=== PATIENT | female | born 1965 | race Caucasian/White ===

== ENCOUNTER → 2017-04-13 | Outpatient (CLI) | payer OTHER ==
[~2017-04-13] MED LIST: 'PARAFON FORTE500 M1 PO; AUGMENTIN 875 M1 TAB PO; BACTRIM 400 MG-1 TAB PO; BENADRYL25 MG PO; BENTYL10 MG PO; CEFTIN500 MG PO; CIPRO500 MG PO; CLARITIN10 MG PO; CLEOCIN150 MG PO; FLAGYL 375375 MG PO; FLEXERIL10 MG PO; HYDROCODONE BIT1 T11 PO; MOTRIN800 MG PO; NAPROSYN500 MG PO; NORCO 325 MG-51 TAB PO; NORFLEX100 MG PO; PREDNICOT20 MG PO; PROTONIX40 MG PO; TYLENOL W/CODEI1 TA2 PO; VALIUM5 MG PO; VICODIN ES 7501 TAB PO; ZOFRAN ODT4 MG SL; Zofran4 MG PO
== END | disposition home or self-care (01) ==
LOC: RESCLI 03:10
DX: F41.0 Panic disorder [episodic paroxysmal anxiety] (principal); K04.7 Periapical abscess without sinus; F51.01 Primary insomnia; M79.671 Pain in right foot; J30.9 Allergic rhinitis, unspecified

== ENCOUNTER → 2017-04-16 | Outpatient (CLI) | payer OTHER ==
[2017-04-17 08:09] LABS: RHEUMATOID ARTHRITIS FACTOR <10.0 IU/mL (0.0-13.9)
== END | disposition home or self-care (01) ==
LOC: LAB 10:42
PROVIDERS: Hospitalist
DX: M79.671 Pain in right foot (principal)

== ENCOUNTER → 2017-07-26 | Outpatient (CLI) | payer OTHER | END | disposition home or self-care (01) | LOC: RESCLI 02:58 | DX: Z12.11 Encounter for screening for malignant neoplasm of colon (principal); M79.671 Pain in right foot; F41.0 Panic disorder [episodic paroxysmal anxiety]; F51.01 Primary insomnia; J30.2 Other seasonal allergic rhinitis; M25.511 Pain in right shoulder; G89.29 Other chronic pain; R07.9 Chest pain, unspecified; R00.0 Tachycardia, unspecified; F17.200 Nicotine dependence, unspecified, uncomplicated ==

== ENCOUNTER → 2017-11-10 | Outpatient (CLI) | payer OTHER | END | disposition home or self-care (01) | LOC: MRI 13:15 | DX: M50.821 Other cervical disc disorders at C4-C5 level (principal); M50.823 Other cervical disc disorders at C6-C7 level; M54.6 Pain in thoracic spine; M25.511 Pain in right shoulder ==

== ENCOUNTER 2018-03-17 10:30 | Emergency (ER) | payer OTHER ==
[~2018-03-17] VITALS: Ht 172.7 cm; Wt 80.7 kg
[~2018-03-17 10:30] MED LIST changes: -CLINDAMYCIN HC300 MG PO; -PERIDEX118 ML MM
[2018-03-17 10:31] VITALS: BP 105/80
[2018-03-17] MEDS ORDERED: PERIDEX118 ML MM (10:59)
[2018-03-17] MEDS ORDERED: CLINDAMYCIN HC300 MG PO (10:59)
== END 2018-03-17 11:04 | disposition home or self-care (01) ==
LOC: ED 10:30
DX: K08.89 Other specified disorders of teeth and supporting structures (principal); R68.84 Jaw pain; Z90.89 Acquired absence of other organs; Z88.0 Allergy status to penicillin; Z88.5 Allergy status to narcotic agent; Z88.1 Allergy status to other antibiotic agents

== ENCOUNTER → 2018-03-17 | Outpatient (CLI) | payer OTHER ==
[~2018-03-17] MED LIST changes: +CLINDAMYCIN HC300 MG PO; +PERIDEX118 ML MM
== END | disposition home or self-care (01) ==
LOC: MRI 09:17
DX: M54.6 Pain in thoracic spine (principal); R20.0 Anesthesia of skin

== ENCOUNTER 2018-05-28 14:56 | Emergency (ER) | payer OTHER ==
[~2018-05-28] VITALS: Ht 172.7 cm; Wt 81.6 kg
[2018-05-28 14:56] VITALS: BP 116/82
[~2018-05-28 14:56] MED LIST changes: +CLINDAMYCIN HC300 MG PO; +CYCLOBENZAPRINE5 M3 PO; +PERIDEX118 ML MM; +PREDNISONE10 MG PO
[2018-05-28] MEDS ORDERED: SEPTDS PO (15:11)
== END 2018-05-28 15:26 | disposition home or self-care (01) ==
LOC: ED 14:56
DX: H66.91 Otitis media, unspecified, right ear (principal); R68.84 Jaw pain; R09.81 Nasal congestion; Z88.0 Allergy status to penicillin; Z88.6 Allergy status to analgesic agent; Z88.1 Allergy status to other antibiotic agents

== ENCOUNTER 2018-06-04 12:00 | Emergency (ER) | payer OTHER ==
[~2018-06-04] VITALS: Ht 172.7 cm; Wt 83.5 kg
[~2018-06-04 12:00] MED LIST changes: +SEPTDS PO
[2018-06-04 12:01] VITALS: BP 151/90
[2018-06-04] MEDS ORDERED: Peridex 473 ML473 ML PO (12:15)
[2018-06-04] MEDS ORDERED: CLINDAMYCIN150 MG PO (12:15)
[2018-06-04] MEDS ORDERED: ZOFRAN4 MG PO (12:15)
== END 2018-06-04 14:29 | disposition home or self-care (01) ==
LOC: ED 12:00
DX: K02.9 Dental caries, unspecified (principal); R03.0 Elevated blood-pressure reading, without diagnosis of hypertension; H92.01 Otalgia, right ear; F17.200 Nicotine dependence, unspecified, uncomplicated; Z88.0 Allergy status to penicillin; Z88.5 Allergy status to narcotic agent; Z88.1 Allergy status to other antibiotic agents; Z98.890 Other specified postprocedural states

== ENCOUNTER 2018-07-07 17:26 | Emergency (ER) | payer OTHER ==
[~2018-07-07] VITALS: Ht 172.7 cm; Wt 90.7 kg
[~2018-07-07 17:26] MED LIST changes: +CLINDAMYCIN150 MG PO; +Peridex 473 ML473 ML PO; +ZOFRAN4 MG PO
[2018-07-07 18:15] LABS: BASO % 0.2 % (0.0-1.0); EOS # 0.1 10*3/uL (0.0-0.4); EOS % 0.5 % (1.0-4.0); HEMATOCRIT 42.2 % (37.0-47.0); LYMPH # 3.6 10*3/uL (1.3-4.4); LYMPH % 21.9 % (27.0-41.0); MEAN CELL VOLUME 91.5 fl (81.0-99.0); MEAN CORPUSCULAR HGB 30.4 pg (27.0-31.0); MEAN CORPUSCULAR HGB CONC 33.2 g/dl (33.0-37.0); MEAN PLATELET VOLUME 9.7 fl (9.6-12.3); MONO % 6.1 % (3.0-9.0); NEUT # 11.6 10*3/uL (2.3-7.9); PLATELET COUNT AUTOMATED 319 10*3/uL (130-400); RED BLOOD COUNT 4.61 10*6/uL (4.10-5.10); RED CELL DISTRI WIDTH 13.2 % (0-14.5); WHITE BLOOD COUNT 16.4 10*3/uL (4.8-10.8)
[2018-07-07 18:16] LABS: BILIRUBIN NEGATIVE (NEGATIVE); BLOOD 3+ (NEGATIVE); CLARITY CLOUDY (CLEAR); COLOR YELLOW (YELLOW); GLUCOSE NEGATIVE (NEGATIVE); KETONE NEGATIVE (NEGATIVE); LEUKO ESTERASE TRACE (NEGATIVE); NITRITE POSITIVE (NEGATIVE); SPECIFIC GRAVITY >= 1.030 (1.005-1.030)
[2018-07-07 18:28] LABS: BACTERIA 2+; MUCOUS 1+; RBC TNTC rbc/hpf (0-2); WBC TNTC wbc/hpf (0-5)
[2018-07-07 18:30] LABS: ALBUMIN 3.8 gm/dl (3.1-4.5); ALKALINE PHOSPHATASE 125 U/L (45-117); BUN 14 mg/dl (7-24); CHLORIDE 105 mmol/L (98-107); CREATININE 0.64 mg/dL (0.55-1.02); LIPASE 120 U/L (73-393); POTASSIUM 3.7 mmol/L (3.5-5.1); SGOT/AST 13 IU/L (3-35); SGPT/ALT 16 U/L (12-78); SODIUM 137 mmol/L (136-145); TOTAL PROTEIN 7.5 gm/dL (6.4-8.2)
[2018-07-07 20:53] VITALS: BP 111/75
[2018-07-07] MEDS ORDERED: CIPRO500 MG PO (21:04)
== END 2018-07-07 20:48 | disposition home or self-care (01) ==
LOC: ED 17:26
PROVIDERS: Physician Assistant
DX: N39.0 Urinary tract infection, site not specified (principal); F17.200 Nicotine dependence, unspecified, uncomplicated; Z88.0 Allergy status to penicillin; Z88.1 Allergy status to other antibiotic agents; Z88.6 Allergy status to analgesic agent

== ENCOUNTER 2021-01-13 03:45 | Inpatient (IN) | payer OTHER ==
[~2021-01-13] VITALS: Ht 172.7 cm; Wt 75.9 kg
[~2021-01-13 03:45] MED LIST changes: +COLACE100 MG PO; +HYDROCODONE-AC1 EAC1 PO; +LEVOFLOXACIN500 MG PO; +VITAMIN D31250 MC1 PO; +VITAMIN D350 MC2 PO
[2021-01-13 05:15] VITALS: BP 106/66
[2021-01-13 06:08] LABS: ALBUMIN 2.3 gm/dl (3.1-4.5); ALKALINE PHOSPHATASE 101 U/L (45-117); BUN 7 mg/dl (7-24); CHLORIDE 97 mmol/L (98-107); CREATININE 0.52 mg/dL (0.55-1.02); POTASSIUM 2.8 mmol/L (3.5-5.1); SGOT/AST 19 IU/L (3-35); SGPT/ALT 31 U/L (12-78); SODIUM 134 mmol/L (136-145); TOTAL PROTEIN 6.6 gm/dL (6.4-8.2)
[2021-01-13 06:22] LABS: HEMATOCRIT 33.9 % (37.0-47.0); MEAN CELL VOLUME 90.2 fl (81.0-99.0); MEAN CORPUSCULAR HGB 30.3 pg (27.0-31.0); MEAN CORPUSCULAR HGB CONC 33.6 g/dl (33.0-37.0); MEAN PLATELET VOLUME 9.5 fl (9.6-12.3); PLATELET COUNT AUTOMATED 498 10*3/uL (130-400); RED BLOOD COUNT 3.76 10*6/uL (4.10-5.10); RED CELL DISTRI WIDTH 13.2 % (0-14.5); WHITE BLOOD COUNT 17.7 10*3/uL (4.8-10.8)
[2021-01-13 07:14] LABS: BASOPHILS 1 % (0-1); OVALOCYTES FEW; PLATELET SUFFICIENCY HIGH (NORMAL); POLYCHROMASIA SLIGHT; TOTAL CELLS COUNTED 100 #CELLS
[2021-01-13 07:50] VITALS: BP 114/62
[2021-01-13 13:22] VITALS: BP 111/66
[2021-01-13 13:51] VITALS: BP 111/66
[2021-01-13] MEDS ORDERED: MELOXICAM15 MG PO (19:56)
[2021-01-13] MEDS ORDERED: MONTELUKAST SOD10 MG PO (19:56)
[2021-01-13] MEDS ORDERED: OMEPRAZOLE40 MG PO (19:57)
[2021-01-13] MEDS ORDERED: NEURONTIN300 MG PO (19:58)
[2021-01-13] MEDS ORDERED: ARTHRITIS PAIN650 MG PO (19:59)
[2021-01-13 22:44] VITALS: BP 110/63
[2021-01-13] MEDS ORDERED: VITAMIN D31250 MC1 PO (23:51)
[2021-01-14] VITALS: BP 117/59
[2021-01-14 06:41] LABS: BASO % 0.3 % (0.0-1.0); EOS # 0.1 10*3/uL (0.0-0.4); EOS % 0.9 % (1.0-4.0); HEMATOCRIT 31.7 % (37.0-47.0); LYMPH # 2.3 10*3/uL (1.3-4.4); LYMPH % 20.6 % (27.0-41.0); MEAN CELL VOLUME 90.6 fl (81.0-99.0); MEAN CORPUSCULAR HGB 29.4 pg (27.0-31.0); MEAN CORPUSCULAR HGB CONC 32.5 g/dl (33.0-37.0); MEAN PLATELET VOLUME 9.2 fl (9.6-12.3); MONO # 1.3 10*3/uL (0.1-1.0); MONO % 11.4 % (3.0-9.0); NEUT # 7.3 10*3/uL (2.3-7.9); NEUT % 66.1 % (47.0-73.0); PLATELET COUNT AUTOMATED 471 10*3/uL (130-400); RED CELL DISTRI WIDTH 13.2 % (0-14.5); WHITE BLOOD COUNT 11.1 10*3/uL (4.8-10.8)
[2021-01-14 06:50] LABS: ACT PARTIAL THROMBO TIME 25.5 SECONDS (20.0-32.1)
[2021-01-14 06:52] LABS: BUN 5 mg/dl (7-24); CHLORIDE 102 mmol/L (98-107); POTASSIUM 3.3 mmol/L (3.5-5.1); SGOT/AST 13 IU/L (3-35); SGPT/ALT 22 U/L (12-78); SODIUM 138 mmol/L (136-145)
[2021-01-14 06:54] LABS: ALKALINE PHOSPHATASE 88 U/L (45-117); TOTAL PROTEIN 5.8 gm/dL (6.4-8.2)
[2021-01-14 08:00] VITALS: BP 102/62; BP 106/52
[2021-01-14 12:00] VITALS: BP 100/56
[2021-01-14 16:00] VITALS: BP 109/64
[2021-01-14 20:00] VITALS: BP 96/54
[2021-01-15] VITALS: BP 96/57
[2021-01-15 06:42] LABS: HEMATOCRIT 32.5 % (37.0-47.0); MEAN CELL VOLUME 90.8 fl (81.0-99.0); MEAN CORPUSCULAR HGB 28.8 pg (27.0-31.0); MEAN CORPUSCULAR HGB CONC 31.7 g/dl (33.0-37.0); MEAN PLATELET VOLUME 9.1 fl (9.6-12.3); PLATELET COUNT AUTOMATED 520 10*3/uL (130-400); RED BLOOD COUNT 3.58 10*6/uL (4.10-5.10); RED CELL DISTRI WIDTH 13.2 % (0-14.5); WHITE BLOOD COUNT 13.6 10*3/uL (4.8-10.8)
[2021-01-15 06:56] LABS: BUN 7 mg/dl (7-24); CHLORIDE 103 mmol/L (98-107); CREATININE 0.46 mg/dL (0.55-1.02); POTASSIUM 3.5 mmol/L (3.5-5.1); SODIUM 137 mmol/L (136-145)
[2021-01-15 07:31] LABS: BURR CELLS FEW; OVALOCYTES FEW; PLATELET SUFFICIENCY HIGH (NORMAL); POLYCHROMASIA SLIGHT; TOTAL CELLS COUNTED 100 #CELLS
[2021-01-15 08:00] VITALS: BP 100/54; BP 110/62
[2021-01-15 12:00] VITALS: BP 142/52
[2021-01-15 15:00] VITALS: BP 111/56
[2021-01-15 20:00] VITALS: BP 104/60
[2021-01-16] VITALS: BP 106/55
[2021-01-16 06:28] LABS: HEMATOCRIT 27.9 % (37.0-47.0); MEAN CELL VOLUME 91.2 fl (81.0-99.0); MEAN CORPUSCULAR HGB 28.8 pg (27.0-31.0); MEAN CORPUSCULAR HGB CONC 31.5 g/dl (33.0-37.0); MEAN PLATELET VOLUME 9.1 fl (9.6-12.3); PLATELET COUNT AUTOMATED 446 10*3/uL (130-400); RED BLOOD COUNT 3.06 10*6/uL (4.10-5.10); RED CELL DISTRI WIDTH 13.2 % (0-14.5)
[2021-01-16 07:42] LABS: TOTAL CELLS COUNTED 100 #CELLS
[2021-01-16 07:43] LABS: PLATELET SUFFICIENCY HIGH (NORMAL)
[2021-01-16 08:00] VITALS: BP 100/58
[2021-01-16] MEDS ORDERED: PREMIERPRO RX ME1 GM IV (10:40)
[2021-01-16 12:00] VITALS: BP 128/50
[2021-01-16 16:00] VITALS: BP 132/54
[2021-01-16 20:00] VITALS: BP 111/61
[2021-01-17] VITALS: BP 113/61
[2021-01-17 06:47] LABS: BASO % 0.3 % (0.0-1.0); EOS # 0.2 10*3/uL (0.0-0.4); EOS % 1.8 % (1.0-4.0); HEMATOCRIT 28.9 % (37.0-47.0); LYMPH # 3.7 10*3/uL (1.3-4.4); LYMPH % 33.6 % (27.0-41.0); MEAN CORPUSCULAR HGB CONC 31.5 g/dl (33.0-37.0); MEAN PLATELET VOLUME 8.9 fl (9.6-12.3); MONO # 1.3 10*3/uL (0.1-1.0); MONO % 12.3 % (3.0-9.0); NEUT # 5.6 10*3/uL (2.3-7.9); NEUT % 51.2 % (47.0-73.0); PLATELET COUNT AUTOMATED 409 10*3/uL (130-400); RED BLOOD COUNT 3.14 10*6/uL (4.10-5.10); RED CELL DISTRI WIDTH 13.3 % (0-14.5); WHITE BLOOD COUNT 10.9 10*3/uL (4.8-10.8)
[2021-01-17 12:00] VITALS: BP 109/68
[2021-01-17] MEDS ORDERED: HYDROCODONE-AC1 EAC1 PO (13:45)
== END 2021-01-17 19:38 | disposition home or self-care (01) | DRG 711 ==
LOC: ED 03:45 → EDHOLD 08:20 → 5E 08:20 → EDHOLD 15:10 → 5E 19:12
PROVIDERS: Emergency Medicine; Internal Medicine; ADMIT Internal Medicine; ATTEND Internal Medicine
PROC: 0WH Anatomical Regions, General, Insertion (ICD-10-PCS; principal; 2021-01-13)
PROC: 02HV33Z Insertion of Infusion Device into Superior Vena Cava, Percutaneous Approach (ICD-10-PCS; 2021-01-15)
DX: T81.43XA Infection following a procedure, organ and space surgical site, initial encounter (principal); A41.9 Sepsis, unspecified organism; E87.1 Hypo-osmolality and hyponatremia; E43 Unspecified severe protein-calorie malnutrition; K57.90 Diverticulosis of intestine, part unspecified, without perforation or abscess without bleeding; G62.9 Polyneuropathy, unspecified; K21.9 Gastro-esophageal reflux disease without esophagitis; J96.00 Acute respiratory failure, unspecified whether with hypoxia or hypercapnia; Z20.822 Contact with and (suspected) exposure to COVID-19; Y83.8 Other surgical procedures as the cause of abnormal reaction of the patient, or of later complication, without mention of misadventure at the time of the procedure; L02.211 Cutaneous abscess of abdominal wall; K58.9 Irritable bowel syndrome, unspecified; R73.9 Hyperglycemia, unspecified; E87.6 Hypokalemia; D64.9 Anemia, unspecified; F17.210 Nicotine dependence, cigarettes, uncomplicated; Z71.6 Tobacco abuse counseling; Y92.89 Other specified places as the place of occurrence of the external cause; Z88.0 Allergy status to penicillin; Z88.5 Allergy status to narcotic agent; Z88.1 Allergy status to other antibiotic agents; Z82.49 Family history of ischemic heart disease and other diseases of the circulatory system; Z82.0 Family history of epilepsy and other diseases of the nervous system; Z83.3 Family history of diabetes mellitus; Z79.1 Long term (current) use of non-steroidal anti-inflammatories (NSAID); Z79.899 Other long term (current) drug therapy; I25.2 Old myocardial infarction

== ENCOUNTER → 2021-02-06 | Outpatient (CLI) | payer OTHER ==
[~2021-02-06] MED LIST changes: +ARTHRITIS PAIN650 MG PO; +MELOXICAM15 MG PO; +MONTELUKAST SOD10 MG PO; +NEURONTIN300 MG PO; +OMEPRAZOLE40 MG PO; +PREMIERPRO RX ME1 GM IV
== END | disposition home or self-care (01) ==
LOC: CT 08:57
PROVIDERS: ATTEND Surgery
DX: C18.2 Malignant neoplasm of ascending colon (principal); J43.9 Emphysema, unspecified; J98.11 Atelectasis; E65 Localized adiposity; L90.5 Scar conditions and fibrosis of skin; K57.30 Diverticulosis of large intestine without perforation or abscess without bleeding; Z90.49 Acquired absence of other specified parts of digestive tract; C18.9 Malignant neoplasm of colon, unspecified

== ENCOUNTER → 2021-03-11 | Outpatient (CLI) | payer OTHER ==
[2021-03-11 12:39] LABS: HEMATOCRIT 36.9 % (37.0-47.0); MEAN CELL VOLUME 87.6 fl (81.0-99.0); MEAN CORPUSCULAR HGB 28.3 pg (27.0-31.0); MEAN CORPUSCULAR HGB CONC 32.2 g/dl (33.0-37.0); MEAN PLATELET VOLUME 9.5 fl (9.6-12.3); PLATELET COUNT AUTOMATED 235 10*3/uL (130-400); RED BLOOD COUNT 4.21 10*6/uL (4.10-5.10); RED CELL DISTRI WIDTH 14.5 % (0-14.5); WHITE BLOOD COUNT 4.6 10*3/uL (4.8-10.8)
[2021-03-11 13:09] LABS: TOTAL CELLS COUNTED 100 #CELLS
[2021-03-11 13:10] LABS: PLATELET SUFFICIENCY NORMAL (NORMAL)
== END | disposition home or self-care (01) ==
LOC: LAB 12:13
PROVIDERS: ATTEND Internal Medicine Hematology & Oncology
DX: C18.2 Malignant neoplasm of ascending colon (principal); D64.9 Anemia, unspecified; R06.4 Hyperventilation; K57.30 Diverticulosis of large intestine without perforation or abscess without bleeding; K58.2 Mixed irritable bowel syndrome; D50.9 Iron deficiency anemia, unspecified; N39.0 Urinary tract infection, site not specified

== ENCOUNTER → 2021-05-30 | Outpatient (CLI) | payer MEDICAID | END | disposition home or self-care (01) | LOC: CT 00:02 | PROVIDERS: ATTEND Nurse Practitioner Adult Health | DX: C18.2 Malignant neoplasm of ascending colon (principal); K76.0 Fatty (change of) liver, not elsewhere classified; N28.1 Cyst of kidney, acquired ==

== ENCOUNTER → 2021-10-01 | Outpatient (CLI) | payer MEDICAID | END | disposition home or self-care (01) | LOC: CT 09:53 | PROVIDERS: ATTEND Nurse Practitioner Adult Health | DX: C18.2 Malignant neoplasm of ascending colon (principal); J43.9 Emphysema, unspecified; I25.10 Atherosclerotic heart disease of native coronary artery without angina pectoris ==

== ENCOUNTER → 2021-11-08 | Outpatient (CLI) | payer MEDICAID | END | disposition home or self-care (01) | LOC: RAD 12:58 | PROVIDERS: ATTEND Internal Medicine | DX: M25.511 Pain in right shoulder (principal) ==

== ENCOUNTER → 2021-12-08 | Outpatient (CLI) | payer MEDICAID | END | disposition home or self-care (01) | LOC: MRI 09:48 | PROVIDERS: ATTEND Orthopaedic Surgery Sports Medicine | DX: M75.111 Incomplete rotator cuff tear or rupture of right shoulder, not specified as traumatic (principal); M19.011 Primary osteoarthritis, right shoulder; M25.411 Effusion, right shoulder; M65.821 Other synovitis and tenosynovitis, right upper arm ==

== ENCOUNTER → 2022-03-20 | Outpatient (CLI) | payer MEDICAID | END | disposition home or self-care (01) | LOC: MEDIPORT 09:49 | PROVIDERS: ATTEND Internal Medicine Hematology & Oncology | DX: Z45.2 Encounter for adjustment and management of vascular access device (principal); C18.2 Malignant neoplasm of ascending colon; D50.9 Iron deficiency anemia, unspecified; D70.2 Other drug-induced agranulocytosis; Z88.0 Allergy status to penicillin; Z88.1 Allergy status to other antibiotic agents; Z88.5 Allergy status to narcotic agent ==

== ENCOUNTER → 2022-05-20 | Outpatient (CLI) | payer MEDICAID | END | disposition home or self-care (01) | LOC: CT 01:49 | PROVIDERS: ATTEND Internal Medicine Hematology & Oncology | DX: C18.9 Malignant neoplasm of colon, unspecified (principal); D50.9 Iron deficiency anemia, unspecified; R59.9 Enlarged lymph nodes, unspecified; D70.2 Other drug-induced agranulocytosis; D64.9 Anemia, unspecified ==

== ENCOUNTER → 2022-10-23 | Outpatient (CLI) | payer MEDICAID | END | disposition home or self-care (01) | LOC: CT 00:56 | PROVIDERS: ATTEND Internal Medicine Hematology & Oncology | DX: C18.9 Malignant neoplasm of colon, unspecified (principal); D50.9 Iron deficiency anemia, unspecified; I25.10 Atherosclerotic heart disease of native coronary artery without angina pectoris; D70.2 Other drug-induced agranulocytosis; D64.9 Anemia, unspecified; J43.9 Emphysema, unspecified; K57.32 Diverticulitis of large intestine without perforation or abscess without bleeding ==

== ENCOUNTER → 2023-02-26 | Outpatient (CLI) | payer MEDICAID | END | disposition home or self-care (01) | LOC: CT 01:08 | PROVIDERS: ATTEND Internal Medicine Hematology & Oncology | DX: C18.2 Malignant neoplasm of ascending colon (principal); J43.9 Emphysema, unspecified; J98.11 Atelectasis; I70.0 Atherosclerosis of aorta; D70.2 Other drug-induced agranulocytosis; D50.9 Iron deficiency anemia, unspecified ==

== ENCOUNTER → 2023-09-09 | Outpatient (CLI) | payer MEDICAID | END | disposition home or self-care (01) | LOC: CT 00:27 | PROVIDERS: ATTEND Internal Medicine Hematology & Oncology | DX: C18.2 Malignant neoplasm of ascending colon (principal); D70.2 Other drug-induced agranulocytosis; D50.9 Iron deficiency anemia, unspecified; I25.10 Atherosclerotic heart disease of native coronary artery without angina pectoris; J43.9 Emphysema, unspecified ==

== ENCOUNTER → 2023-10-19 | Outpatient (CLI) | payer MEDICAID ==
[~2023-10-19] MED LIST changes: +HEPARIN SODIUM 500 UNIT/5 ML SYR IV SCH; +IOHEXOL 300 MG/ML 100 ML VIAL IV ONE
== END | disposition home or self-care (01) ==
LOC: CT 00:54
PROVIDERS: ATTEND Internal Medicine Hematology & Oncology
DX: C18.2 Malignant neoplasm of ascending colon (principal); D70.2 Other drug-induced agranulocytosis; D64.9 Anemia, unspecified; D50.9 Iron deficiency anemia, unspecified; R59.0 Localized enlarged lymph nodes; K82.9 Disease of gallbladder, unspecified; I70.0 Atherosclerosis of aorta

== ENCOUNTER 2023-11-21 19:19 | Emergency (ER) | payer MEDICAID ==
[~2023-11-21] VITALS: Ht 172.7 cm; Wt 54.4 kg
[~2023-11-21 19:19] MED LIST changes: -HEPARIN SODIUM 500 UNIT/5 ML SYR IV SCH; -IOHEXOL 300 MG/ML 100 ML VIAL IV ONE
[2023-11-21 19:32] VITALS: BP 131/83
[2023-11-21 20:13] LABS: BASO % 0.1 % (0.0-1.0); EOS # 0.2 10*3/uL (0.0-0.4); EOS % 2.5 % (1.0-4.0); HEMATOCRIT 37.7 % (37.0-47.0); LYMPH # 1.2 10*3/uL (1.3-4.4); LYMPH % 16.1 % (27.0-41.0); MEAN CELL VOLUME 93.3 fl (81.0-99.0); MEAN CORPUSCULAR HGB CONC 32.1 g/dl (33.0-37.0); MEAN PLATELET VOLUME 10.2 fl (9.6-12.3); MONO # 0.9 10*3/uL (0.1-1.0); MONO % 12.9 % (3.0-9.0); NEUT # 4.9 10*3/uL (2.3-7.9); NEUT % 68.1 % (47.0-73.0); PLATELET COUNT AUTOMATED 300 10*3/uL (130-400); RED BLOOD COUNT 4.04 10*6/uL (4.10-5.10); RED CELL DISTRI WIDTH 18.2 % (0-14.5); WHITE BLOOD COUNT 7.2 10*3/uL (4.8-10.8)
[2023-11-21 20:27] LABS: BUN 11 mg/dl (9-23); CHLORIDE 100 mmol/L (98-107); POTASSIUM 3.4 mmol/L (3.4-5.1)
[2023-11-21] MEDS ORDERED: LEVOFLOXACIN 750 MG TAB PO ONE (21:10)
[2023-11-21] MEDS ORDERED: LEVOFLOXACIN500 MG PO (21:13)
== END 2023-11-21 21:40 | disposition home or self-care (01) ==
LOC: ED 19:19
PROVIDERS: Nurse Practitioner
DX: J18.9 Pneumonia, unspecified organism (principal); Z20.822 Contact with and (suspected) exposure to COVID-19; J44.9 Chronic obstructive pulmonary disease, unspecified; F17.200 Nicotine dependence, unspecified, uncomplicated; Z85.038 Personal history of other malignant neoplasm of large intestine; Z88.0 Allergy status to penicillin; Z88.5 Allergy status to narcotic agent; Z88.1 Allergy status to other antibiotic agents; Z79.899 Other long term (current) drug therapy; Z90.89 Acquired absence of other organs